=== PATIENT | male | born 2000 | race Caucasian/White ===

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

== ENCOUNTER 2021-11-06 18:21 | Emergency (ER) | payer OTHER, SELFPAY ==
[2021-11-06 18:39] VITALS: BP 150/69; PULSE 81; RESP 20; TEMP 36.7; O2SAT 99
--- NOTE | 2021-11-06 20:29 | DI.US.S_ITS ---
PROCEDURE: US PERIPH VENOUS UP EXTREM LT INDICATIONS: PAIN, SWELLING TECHNIQUE: Real-time imaging, as well as color and pulse Doppler interrogation, was performed of the left upper extremity deep veins from the inferior neck to the antecubital fossa. COMPARISON: None. FINDINGS: The internal jugular vein, visualized portions of the subclavian vein, axillary, and brachial veins are free of intraluminal thrombus. Where physically possible, the veins are normally compressible. Color and pulse Doppler demonstrate normal intraluminal flow, with expected phasicity and pulsatility. Additional scanning of the cephalic and basilic veins of the superficial system demonstrate normal compressibility, without thrombus. IMPRESSION: No sonographic evidence of left upper extremity DVT. Dictated by: Jose Miguel Andrew M.D. on 11/06/2021 at 21:48 Approved by: Jose Miguel Andrew M.D. on 11/06/2021 at 21:49
--- NOTE | 2021-11-06 20:31 | ED.EXTPRO ---
HPI - Extremity Problem General Chief complaint: Extremity Problem,Nontraumatic Stated complaint: Bruising/Knot, Left Arm Time Seen by Provider: 11/06/21 20:25 Source: patient Mode of arrival: Ambulatory History of Present Illness HPI Narrative: Patient here for left arm bruising. Mild pain. To the left bicep. Patient states he lifted his fiancee 2 days ago. Noticed some pain and bruising to the medial aspect of the biceps. No numbness tingling or weakness. No chest pain or dyspnea. Skin is intact. There is a healing ovoid bruise to the left bicep. No gross deformity of the biceps. Related Data Previous Rx's Medication Instructions Recorded cephalexin 500 mg capsule (Keflex) 500 mg PO QID #20 cap 11/22/19 ibuprofen 600 mg tablet 600 mg PO QID PRN #20 tab 11/22/19 Allergies Allergy/AdvReac Type Severity Reaction Status Date / Time No Known Drug Allergies Allergy Unverified 11/21/18 11:44 Review of Systems Review of Systems Narrative: GENERAL: Denies chills, fatigue, malaise, fever, sweats. HEENT: Denies sinus pain, ear pain, sore throat RESPIRATORY: Denies dyspnea, cough CARDIOVASCULAR: Denies chest pain, palpitations GASTROINTESTINAL: Denies nausea, vomiting, abdominal pain : Denies dysuria, frequency, hematuria MUSCULOSKELETAL: Positive for muscle negative for bony pain SKIN: Denies rash, skin lesions NEUROLOGIC: Denies weakness, numbness ROS Unobtainable: All systems reviewed & are unremarkable except as noted in HPI and below Patient History Social History Smoking Status: Current every day smoker Smoking Status: Current every day smoker Exam Narrative Exam Narrative: GENERAL: in no distress, not toxic not dyspneic HEAD: Normocephalic. EYES: Pupils equal round EXTREMITIES: No gross deformities. Left shoulder to finger tips exposed. Nontender shoulder elbow wrist and hand. 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 Light touch intact to thumb and fingers. There is ovoid healing bruise 4 cm in length 2 cm in width at the distal medial biceps. No gross deformity. Full active range of motion at the elbow and forearm and shoulder. NEURO: AOx4. SKIN: Warm and dry PSYCH: Not anxious, is cooperative Initial Vital Signs Initial Vital Signs: Vital Signs Temperature 98.0 F 11/06/21 18:39 Pulse Rate 81 11/06/21 18:39 Respiratory Rate 20 11/06/21 18:39 Blood Pressure 150/69 H 11/06/21 18:39 Pulse Oximetry 99 11/06/21 18:39 Course Course Course Narrative: No new issues during course of stay Orders Ordered: ED Orders 11/06/21 20:29 US periph venous up extrem lt Stat Reevaluation(s) Reevaluation #1: Reviewed preliminary reports of ultrasound patient. No DVT at this time. Or SVT. He does not want to wait for follow-up report. Return precautions reviewed with him. He desires discharge home Time: 21:51 Vital Signs Vital signs: Vital Signs - 8 hr 11/06/21 18:39 Temperature 98.0 F Pulse Rate 81 Respiratory Rate 20 Blood Pressure 150/69 H Pulse Oximetry 99 MDM - Extremity (Nontraumatic) Differential Diagnosis Differential diagnosis: Likely superficial thrombophlebitis, deep venous thrombosis of upper extremity and other (Muscle strain/hematoma) Imaging Data US - DVT: Radiologist's Impression: [place] [address] Ultrasound Report Signed Patient: Rory Byers MR#: [id number] : 2000 Acct:[id number] Age/Sex: 21 / M Date of Service: 11/06/21 Loc: ED Accession Number: [id number] ?? Procedure: US periph venous up extrem lt Ordering Provider: Mike Guan MD PROCEDURE:? US PERIPH VENOUS UP EXTREM LT ? INDICATIONS:? PAIN, SWELLING ? TECHNIQUE:? Real-time imaging, as well as color and pulse Doppler interrogation, was performed of the left upper extremity deep veins from the inferior neck to the antecubital fossa.? ? COMPARISON:? None. ? FINDINGS:? The internal jugular vein, visualized portions of the subclavian vein, axillary, and brachial veins are free of intraluminal thrombus.? Where physically possible, the veins are normally compressible.? Color and pulse Doppler demonstrate normal intraluminal flow, with expected phasicity and pulsatility.? Additional scanning of the cephalic and basilic veins of the superficial system demonstrate normal compressibility, without thrombus.? ? IMPRESSION:? No sonographic evidence of left upper extremity DVT. ? ? Dictated by: Jose Miguel Andrew M.D. on 11/06/2021 at 21:48 ? ? Approved by: Jose Miguel Andrew M.D. on 11/06/2021 at 21:49 ? MDM Narrative Medical decision making narrative: Appropriate for discharge home. Exam and imaging reassuring. Likely muscle tear/strain causing hematoma. However no DVT or SVT. Neurovascularly intact. Return precautions reviewed with patient. Referral for Orthopedics given. He desires discharge home Discharge Plan Departure Patient Disposition: Home Clinical Impression: Biceps muscle strain Instructions: DI for Muscle Strain Activity Restrictions/Additional Instructions: No heavy lifting or sports activity with use of left arm until your muscle as healed. Call provided orthopedic office tomorrow for office recheck in a week. Return if worse if any questions or concerns. Prescriptions: No Action cephalexin [Keflex] 500 mg capsule 500 mg PO QID Qty: 20 0RF ibuprofen 600 mg tablet 600 mg PO QID PRN (Reason: pain) Qty: 20 0RF Referrals: Michael Campbell MD [Physician] -
--- NOTE | 2021-11-06 21:54 | PC.NURSE ---
pt has bruising noted to the LUE unknown injury no swelling or deficits noted
== END 2021-11-06 21:54 | disposition home or self-care (01) ==
PROVIDERS: Emergency Provider Emergency Medicine
DX: S46.212A Strain of muscle, fascia and tendon of other parts of biceps, left arm, initial encounter (principal); X50.9XXA Other and unspecified overexertion or strenuous movements or postures, initial encounter
CPT/HCPCS: 93971; 99281; 99283